=== PATIENT | male | born 1950 | race Caucasian/White ===

== ENCOUNTER → 2016-10-10 | Outpatient (CLI) | payer BC ==
[2016-10-10 16:05] VITALS: BP 118/73; PULSE 63; TEMP 97.6; BMI 34.0
--- NOTE | 2016-10-10 16:53 | P.HPBAR ---
Bariatric H&P - History & Physicial H&P Date: 10/10/16 History & Physicial: Visit/CC: lap band follow up Patient initial contact: Initial weight: Initial weight in pounds: Height: 6 ft Initial BMI: Last weight: Current weight: 113.806 kg Current weight in pounds: 250.90 Current BMI: 34.0 [place] body weight (based on NIH guidelines): 80.739 kg Excess body weight loss: The patient is a 65 year-old M who presents for Bariatric Assessment. Patient presents for follow-up for LAP-BAND adjustment. Patient is going on vacation to [place]. He wished to have his LAP-BAND empty. 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, cellulitis in 1997 History of Any Multi-Drug Resistant Organisms: None Reported Past Surgical History: No Surgical Hx Reported Past Anesthesia/Blood Transfusion Reactions: No Reported Reaction Additional Past Anesthesia/Blood Transfusion Reaction / Comm: no reported blood transfusions, never had anesthesia Past Psychological History: No Psychological Hx Reported Smoking Status: Former smoker Past Alcohol Use History: Occasional Additional Past Alcohol Use History / Comment(s): smoked from age [age], Past Drug Use History: None Reported - Past Family History Mother Family Medical History: Dementia Additional Family Medical History / Comment(s): in "mid 80's" Father Family Medical History: Congestive Heart Failure (CHF) Additional Family Medical History / Comment(s): at age "mid 80's" Surgical - Exam Vital Signs Temp Pulse BP 97.6 F 63 118/73 10/10/16 16:01 10/10/16 16:01 10/10/16 16:01 - General well developed, no distress - Eyes PERRL - ENT normal pinna - Neck no masses - Respiratory normal expansion - Cardiovascular Rhythm: regular - Abdomen Abdomen: soft, non tender Bariatric Assessment & Plan Plan: The patient LAP-BAND was empty. 2.9 mL was removed from his band. He was opened require without difficulty. He'll follow-up in one month after his vacation. Bariatric Checklist Checklist: Plan: Checklist: EGD: 1. Hiatal hernia: 2. H. Pylori: HgbA1c: Vitamin D: Smoking: Former smoker Primary care physician referral: Psychiatry clearance: Cardiology clearance: Sleep study: Diet journal: VTE risk score: VTE risk level: Rehab needs at discharge:
== END ==
LOC: BARWHC3 15:11
PROVIDERS: ATTEND Surgery
DX: Z48.815 Encounter for surgical aftercare following surgery on the digestive system (principal); Z98.84 Bariatric surgery status; Z87.891 Personal history of nicotine dependence
CPT/HCPCS: 99212

== ENCOUNTER → 2016-11-21 | Outpatient (CLI) | payer BC ==
[2016-11-21 16:06] VITALS: BP 122/85; PULSE 63; RESP 16; TEMP 98.7; BMI 34.9
--- NOTE | 2016-11-21 16:28 | P.HPBAR ---
Bariatric H&P - History & Physicial H&P Date: 11/21/16 History & Physicial: Visit/CC: band fill Patient initial contact: Initial weight: Initial weight in pounds: Height: 6 ft Initial BMI: Last weight: 251 Current weight: 116.845 kg Current weight in pounds: 257.60 Current BMI: 34.9 [place] body weight (based on NIH guidelines): 80.739 kg Excess body weight loss: The patient is a 66 year-old M who presents for Bariatric Assessment. Patient presents today for her [place] adjusted. He had his fluid emptied for his recent trip to [place]. He has gained 8 pounds since his last visit. 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, cellulitis in 1997 History of Any Multi-Drug Resistant Organisms: None Reported Past Surgical History: No Surgical Hx Reported Past Anesthesia/Blood Transfusion Reactions: No Reported Reaction Additional Past Anesthesia/Blood Transfusion Reaction / Comm: no reported blood transfusions, never had anesthesia Past Psychological History: No Psychological Hx Reported Smoking Status: Former smoker Past Alcohol Use History: Occasional Additional Past Alcohol Use History / Comment(s): smoked from age [age], Past Drug Use History: None Reported - Past Family History Mother Family Medical History: Dementia Additional Family Medical History / Comment(s): in "mid 80's" Father Family Medical History: Congestive Heart Failure (CHF) Additional Family Medical History / Comment(s): at age "mid 80's" Surgical - Exam Vital Signs Temp Pulse Resp BP 98.7 F 63 16 122/85 11/21/16 16:01 11/21/16 16:01 11/21/16 16:01 11/21/16 16:01 - General well developed - Abdomen Abdomen: soft, non tender Bariatric Assessment & Plan Plan: Patient LAP-BAND was adjusted. He had 2 mL added to his band. He currently has 2 mL in the band. He is ill drink water without difficulty. Bariatric Checklist Checklist: Plan: Checklist: EGD: 1. Hiatal hernia: 2. H. Pylori: HgbA1c: Vitamin D: Smoking: Former smoker [facility] care physician [facility]: [facility] Psychiatry clearance: Cardiology clearance: Sleep study: Diet journal: VTE risk score: VTE risk level: Rehab needs at discharge:
== END ==
LOC: BARWHC3 14:57
PROVIDERS: ATTEND Surgery
DX: Z48.815 Encounter for surgical aftercare following surgery on the digestive system (principal); Z98.84 Bariatric surgery status; Z87.891 Personal history of nicotine dependence
CPT/HCPCS: 99212